=== PATIENT | male | born 1950 | race Caucasian/White ===

== ENCOUNTER 2024-05-08 18:16 | Inpatient (IN) | payer MEDICARE, MEDICAID, SELFPAY ==
[2024-05-08] VITALS (10 sets, daily range): BP systolic 144–220; BP diastolic 91–127; PULSE 94–112; RESP 24–33; TEMP 36.1–36.4; O2SAT 90–96
--- NOTE | 2024-05-08 18:20 | EKG_ITS ---
[facility] Test Date: 2024-05-08 Pat Name: PAT DAVIS Department: Room: - Gender: Male [employer]s Par[employer]: : 1950 Requested By: Colton Can Order Number: [id number] Reading MD: Colton Can Measurements Intervals Gray Rate: 113 P: 66 AR: 170 QRS: 42 QRSD: 93 T: 65 QT: 300 QTc: 412 Interpretive Statements SINUS TACHYCARDIA WITH OCCASIONAL VENTRICULAR PREMATURE COMPLEXES ABNORMAL RHYTHM ECG Compared to ECG 09/04/2023 14:00:36 Ventricular premature complex(es) now present Sinus rhythm no longer present /store/S0/[id number].pdf
--- NOTE | 2024-05-08 18:20 | XR_ITS ---
Examination: AP chest single view Technique: AP portable sitting chest single view Exam date and time: May 08, 2024 1725 hrs. Comparison September 04, 2023 Indications: Shortness of breath today. Findings: Moderate vascular congestion Suspicious for septal edema at the lung bases. No aspiration pneumonia Moderate osteopenia Impression: Mild heart failure No aspiration pneumonia
--- NOTE | 2024-05-08 18:30 | XR_ITS ---
Examination: AP lateral soft tissue neck 2 views Technique: AP lateral soft tissue neck 2 views Indications: Difficulty breathing today. Findings: Moderate distention of the hypopharynx Normal epiglottis No prevertebral soft tissue prominence. No opaque foreign body Impression: Normal epiglottis No opaque foreign body No prevertebral soft tissue prominence
[2024-05-08 18:31] LABS: Lactate (Lactic Acid) 0.9 mMol/L (0.4-2.0)
[2024-05-08 18:32] LABS: Basophils # (Auto) 0.1 Thou/mm3 (0.0-0.2); Basophils % (Auto) 1 % (0-2.5); Eosinophils # (Auto) 0.3 Thou/mm3 (0.0-0.5); Eosinophils % (Auto) 3 % (0-10); Hematocrit 45.8 % (41.0-53.0); Hemoglobin 14.7 g/dL (13.5-16.0); Immature Granulocytes % (Auto) 1 % (0-0); Immature Granulocytes Auto 0.05 Thou/mm3 (0.00-0.00); Lymphocytes # (Auto) 3.7 Thou/mm3 (1.0-4.8); Lymphocytes % (Auto) 34 % (10-50); Mean Corpuscular HGB Conc 32.1 g/dl (31.0-37.0); Mean Corpuscular Hemoglobin 30.2 pg (25.0-35.0); Mean Corpuscular Volume 94 fL (80-100); Monocytes # (Auto) 0.8 Thou/mm3 (0.0-0.8); Monocytes % (Auto) 7 % (0-12); Neutrophils # (Auto) 5.9 Thou/mm3 (1.8-7.7); Neutrophils % (Auto) 54 % (37-80); Nucleated Red Blood Cell % 0 /100 WBC (0); Platelet Count 267 Thou/mm3 (140-440); RDW Standard Deviation 45.3 fL (35.1-43.9); Red Blood Count 4.86 Miln/mm3 (4.50-5.90); White Blood Count 10.9 Thou/mm3 (3.8-10.6)
[2024-05-08 18:41] LABS: Base Excess -2 (-3-3); HCO3 31 mEq/L (20-26); O2 Saturation 95 % (91-98); PCO2 105 mmHg (32.0-48.0); PO2 101 mmHg (83-108)
--- NOTE | 2024-05-08 18:41 | XR_ITS ---
Examination: CTA carotids with intravenous contrast CTA brain, head with intravenous contrast. 2-D sagittal, coronal reconstructions. 3-D reconstructions. Exam date and time: May 08, 2024 1859 hrs. Indications: Stroke alert today CTDI: vol (mGy) 48.9 DLP: (mGycm) 500 Technique: Multiple CTA axial brain, head carotid images post intravenous contrast injection 75 cc, [id number]. 2-D sagittal, coronal reconstructions. 3-D reconstructions, 3-D post processing including vascular maximum intensity projection images. Low dose protocols were performed. One or more of the following dose reduction techniques were used; automated exposure control, adjustment of the mA and/or KV according to patient size, use of iterative reconstruction technique. Findings: Fluid distended esophagus 40-60% stenosis right carotid bifurcation origin right internal carotid artery 70-80% stenosis left carotid bifurcation origin left internal carotid artery Dominant right vertebral artery with no critical vertebral artery stenoses No cerebral large vessel arterial occlusions or thrombus Impression: 40-60% stenosis right carotid bifurcation origin right internal carotid artery 70-80% stenosis left carotid bifurcation origin left internal carotid artery No cerebral large vessel arterial occlusions or thrombus
--- NOTE | 2024-05-08 18:41 | XR_ITS ---
Examination: CT brain head without contrast. 2-D sagittal coronal reconstructions Date and time of exam:May 08, 2024 1847 hrs. Indications: Stroke alert, onset altered mental status today CTDI: vol (mGy):49.5 DLP: (mGycm):1032 Technique: Multiple CT axial sections of the brain have been obtained, 5 mm slice thickness. Contrast has not been administered. 2-D sagittal, coronal reconstructions have been obtained Low dose protocols were performed. One or more of the following dose reduction techniques were used; automated exposure control, adjustment of the mA and/or KV according to patient size, use of iterative reconstruction technique. Findings: No significant ventricular enlargement. Encephalomalacia again noted right cerebral artery distribution compared with May 30, 1999 and Intra-axial or extra-axial hemorrhage density is not seen. No mass effect or midline shift Basal cisterns are not remarkable. Fourth ventricle is midline. Cranial vault intact. Impression: Negative for acute hemorrhage, mass effect or midline shift
--- NOTE | 2024-05-08 18:42 | PC.NURSE ---
VINAY FROM [facility] WAS EATING RICE AT [employer] AND STAFF BELIEF HE ASPIRATED ON RICE, PT BECAME SOB, SPO2 DROPPED TO 79%, EMS PLACED HIM ON A NRB AND GOT HIS SPO2 TO COME UP TO 92%. PT WAS ABLE TO GIVE SHORT ANSWERS UPON ARRIVAL HOWEVER NOW NOT ANSWERING QUESTIONS ONLY LOOKING UP AND NOT RESPONDING TO QUESTIONS, PROVIDER CALLED STROKE ALERT. PT GETTING TREATMENT FROM RT THEN WILL GO TO CT PER PROVIDER. BS WAS 192
[2024-05-08 18:43] LABS: Inspired O2, VO2 Liters 12 L/min
--- NOTE | 2024-05-08 18:44 | PD.EDADULT ---
ED General RME/HPI General Chief complaint: Shortness of Breath/Dyspnea Stated complaint: SHORTNESS OF BREATH Time Seen by Provider: 05/08/24 18:30 Arrival date/time: 05/08/24 18:16 RME / HPI RME / HPI narrative: Patient is 73 years old male with past medical history of COPD, hypertension, hyperlipidemia, anxiety and depression presented to the ED by ambulance due to severe respiratory distress. Per EMS patient was eating at [employer] when he suddenly developed cough and respiratory distress, EMS was called, they found patient saturating 60% on room air, stridor was noticed. Patient was coughing a lot and was coughing up food particles. He was placed on nonrebreather oxygen and his condition improved, saturation was in 80s en route to hospital. Patient was talking to EMS however and on arrival he is nonverbal and his gaze is fixated up. His skin is mottled and he is using accessory respiratory muscles. Last well-known 5:50 PM today. POLST form was brought with patient stating his full code. Related Data Home Medications ?Medication ?Instructions ?Recorded ?Confirmed atorvastatin 40 mg tablet 20 mg PO HS 12/20/19 09/04/23 carvedilol 3.125 mg tablet 3.125 mg PO BID 12/20/19 09/04/23 cholecalciferol (vitamin D3) 125 125 mcg PO QDAY 07/08/20 09/04/23 mcg (5,000 unit) tablet (Vitamin D3) [id number] 1 tab PO QDAY 07/09/20 09/04/23 tablet (Multivitamin 50 Plus tablet) aripiprazole 2 mg tablet (Abilify) 2 mg PO DAILY 08/21/23 09/04/23 aspirin 81 mg chewable tablet 81 mg PO QDAY 08/21/23 09/04/23 cetirizine 10 mg tablet (Zyrtec) 20 mg PO QDAY 08/21/23 09/04/23 escitalopram oxalate 20 mg tablet 20 mg PO DAILY 08/21/23 09/04/23 (Lexapro) tadalafil 5 mg tablet 5 mg PO QDAY 08/21/23 09/04/23 Previous Rx's ?Medication ?Instructions ?Recorded lorazepam 0.5 mg tablet 0.5 mg PO Q12HR PRN Anxiety #30 08/24/23 tabs hydroxyzine HCl 25 mg tablet 25 mg PO BID PRN anxiety #30 tabs 08/25/23 lisinopril 20 mg tablet 20 mg PO QDAY #30 tabs 08/25/23 Allergies Allergy/AdvReac Type Severity Reaction Status Date / Time No Known Allergies Allergy Verified 05/08/24 18:27 Review of Systems Review of Systems ROS Unobtainable: unobtainable due to mental status ED Exam Narrative Physical exam: Gen: Well-developed and well-nourished male in respiratory distress. HEENT: NCAT, PERRLA, EOMI, MMM, anicteric conjunctivae. CVS: normal S1 and S2. Regular tachycardia. No M/R/G. Resp: Decreased breath sounds B/L with rhonchi. Using accessory muscles for breathing. No rales, crackles or wheezing. Abd: soft, non-tender, non-distended. BS+ in all 4 quadrants. MSK: Good ROM in BUE & BLE. No edema. Skin is mottled. Neuro: Limited exam due to mental status, patient is nonverbal does not follow commands. Course Course Course Narrative: Last time normal 1829 : Stroke Alert called 183: To CT 1844: stroke alert. Teleneuro consulted. Patient is taken to CT scan. On 10L oxymask sat 90%. BS 192. BP 220/127, HR 112, RR 33, sat 90% on 15L oxymask. 1850: pH 7.08, pCO2 105, pO2 101. 05/08/24 6:59 pm Colton Plasencia 19:[address] with the patient Patient back to normal answering questions and following all commands. Since he is improved there is no contraindications to tPA. Discussed with the telemetry neurologist and he feels there is some form of history of catatonia and depression and he feels his exam is completely normal at this time he does not feel the patient needs any other stroke workup. Can consider metabolic workup. 2000: decision to admit. Quality Measures none Orders Category Date Time Status Aspiration precautions ONCE Care 05/08/24 18:21 Active Bedside Blood Glucose NOW Care 05/08/24 18:41 Active Bedside COVID-19 Antigen Test NOW Care 05/08/24 19:23 Active Bedside Influenza A&B Antigen Test NOW Care 05/08/24 19:23 Completed COVID-19 Screening Questionnaire NOW Care 05/08/24 20:14 Active [employer] Driver NOW Care 05/08/24 18:41 Active Continuous Pulse Oximetry NOW Care 05/08/24 18:41 Completed Decision to Admit X1 Care 05/08/24 20:14 Active EKG (ED ONLY) *Do not use* NOW Care 05/08/24 18:21 Completed In and Out Catheter NEEDED Care 05/08/24 18:41 Active Insert IV NOW Care 05/08/24 18:21 Active MRI Screening NOW Care 05/08/24 18:57 Completed Miscellaneous Nursing Order NOW Care 05/08/24 20:43 Active NIH Stroke Scale now Care 05/08/24 18:41 Active NPO NOW Care 05/08/24 18:41 Active Neuro Check Q2HR Care 05/08/24 18:42 Active Nurse Swallow Screen x1 Care 05/08/24 18:41 Active Consult to Neurology / Tele-Neurology Routine Cons 05/08/24 18:[address] angio stroke protocol Stat Exams 05/08/24 18:[address] stroke protocol Stat Exams 05/08/24 18:41 Completed CXRP [XR chest 1V portable] Stat Exams 05/08/24 18:20 Completed EKG (ED Only) Stat Exams 05/08/24 18:20 Draft MR stroke protocol Stat Exams 05/08/24 Stop Req XR soft tissue neck Stat Exams 05/08/24 18:30 Completed ABG [Arterial Blood Gas] Stat Lab 05/08/24 18:37 Completed ABG [Arterial Blood Gas] Stat Lab 05/08/24 20:35 Completed B-Type Natriuretic Peptide Stat Lab 05/08/24 18:27 Completed BMP [Basic Metabolic Panel] Stat Lab 05/08/24 21:02 Ordered CBC Stat Lab 05/08/24 18:27 Completed CMP [Comprehensive Metabolic Panel] Stat Lab 05/08/24 18:27 Completed Drug Screen,Urine Stat Lab 05/08/24 18:41 Ordered Lactate (Lactic Acid) Stat Lab 05/08/24 18:27 Completed Lactate (Lactic Acid) Stat Lab 05/08/24 21:02 Ordered Magnesium Stat Lab 05/08/24 18:27 Completed Partial Thromboplastin Time Stat Lab 05/08/24 18:27 Completed Prothrombin Time with INR Stat Lab 05/08/24 18:27 Completed Troponin I Stat Lab 05/08/24 18:27 Completed Urinalysis Stat Lab 05/08/24 18:21 Ordered Urine Culture Stat Lab 05/08/24 18:41 Ordered Aspirin Supp Med 05/08/24 18:41 Discontinued 300 mg NH X1 ONE EPINEPHrine Rt Suzanne [Racemic Epi Rt Suzanne] Med 05/08/24 18:37 Discontinued 0.5 ml .ROUTE .STK-MED ONE EPINEPHrine Rt Suzanne [Racemic Epi Rt Suzanne] Med 05/08/24 18:40 Discontinued 0.5 ml INH X1 ONE Ondansetron Inj [Zofran Inj] Med 05/08/24 18:41 Active 4 mg IV Q4HR PRN Pantoprazole Inj [Protonix Inj] Med 05/08/24 19:52 Discontinued 40 mg IV X1 ONE Sodium Chloride 0.9% 1000 ml [Ns] 1,000 ml Med 05/08/24 18:45 Active IV 100 mls/hr Sodium Chloride Rt Suzanne 0.9% [NS Rt Suzanne 0.9%] Med 05/08/24 18:40 Active 3 ml INH PRN PRN Oxygen Delivery NOW RT 05/08/24 18:21 Active Vital Signs Vital signs: Vital Signs Pulse Rate 112 H 05/08/24 18:21 Respiratory Rate 33 H 05/08/24 18:21 Blood Pressure 220/127 H 05/08/24 18:21 Pulse Oximetry (%) 95 05/08/24 18:21 Oxygen Delivery Method Oxy Mask 05/08/24 18:21 Oxygen Flow Rate 15 05/08/24 18:21 Procedures -ED EKG Interpretation #1: Date of EK05/08/24 Time of EK:24 Rate: 113 Interpretation: Reviewed by me EKG Impression: PVCs and Sinus tachycardia MDM Patient data External records reviewed:: [facility] previous records, EMS form and [facility] records Clinical information provided by:: EMS Social determinants that could affect healthcare access:: none Patient has the following chronic illnesses:: COPD, hypertension, hyperlipidemia, anxiety and depression How is presenting disease/condition affected by chronic disease/condition?: exacerbated by Evaluation data The following diagnostics were reviewed and interpreted by me:: lab results, radiology exam(s) and EKG tracing(s) Lab and/or radiology exams considered but not ordered:: CTA Interpretation Summary: [facility] Medications Medications considered but not ordered:: statin Medication administrations:: Medication Administration History Sodium Chloride (Ns) 1,000 mls @ 100 mls/hr IV .Q10H JG Stop: 06/07/24 18:44 Last Admin: 05/08/24 19:31 Dose: 100 mls/hr Documented By: FLORENCE Ondansetron HCl (Ondansetron Inj 2 Mg/Ml Inj 2 Ml) 4 mg IV Q4HR PRN PRN Reason: NAUSEA OR VOMITING Stop: 06/07/24 18:40 Last Admin: 05/08/24 19:40 Dose: 4 mg Documented By: FLORENCE Sodium Chloride (Sodium Chloride Rt Suzanne 0.9% 3 Ml Nebu) 3 ml INH PRN PRN PRN Reason: SOLN Stop: 06/07/24 18:39 Discontinued Medications Aspirin (Aspirin 300 Mg Supp) 300 mg NH X1 ONE Stop: 05/08/24 18:42 Last Admin: 05/08/24 19:31 Dose: 300 mg Documented By: FLORENCE Epinephrine (Epinephrine Rt Suzanne 0.5 Ml Nebu) 0.5 ml INH X1 ONE Stop: 05/08/24 18:41 Last Admin: 05/08/24 19:13 Dose: 0.5 ml Documented By: ANAND Epinephrine (Epinephrine Rt Suzanne 0.5 Ml Nebu) Confirm Administered Dose 0.5 ml .ROUTE .STK-MED ONE Stop: 05/08/24 18:38 Last Admin: 05/08/24 19:42 Dose: Not Given Documented By: ANAND Non-Admin Reason: Override Medication Pantoprazole Sodium (Pantoprazole Inj 40 Mg Vial) 40 mg IV X1 ONE Stop: 05/08/24 19:53 Last Admin: 05/08/24 20:06 Dose: 40 mg Documented By: FLORENCE as above Consultations Consultation(s) initiated? (list below): Yes Consultation #1 (Physician, Specialty, Details): Teleneurology, stroke alert. Diagnosis Differential Diagnosis ED Complaint MDM: hypercapnia due to aspiration, stroke, TIA, ACS Most likely diagnosis given after review of the tests above:: AHRF 2/2 aspiration Admission Indicated Admission indicated?: indicated Explain why admission is indicated or not indicated:: Patient has experienced severe respiratory distress and acute hypoxic respiratory failure after aspirational event. On arrival his pH was 7.08 and he was obtunded. He was suctioned and put on oxygen high flow and his condition significantly improved and he is now awake and able to talk. Patient will need to be admitted for observation after aspirational event. Admission Request Was there a request for admission?: Yes Admission Attestation Admission request attestation: Discussed case with Dr. Yoder from Hospitalist service regarding admission. Discussed patients ED course, exam findings, labs, and radiology results. The Hospitalist agrees to accept the patient for admission. Disposition Plan Disposition Plan: Admit Medical Decision Making Differential Diagnosis Differential Diagnosis: hypercapnia due to aspiration, stroke, TIA, ACS Lab Data 05/08/24 18:27 05/08/24 18:27 Labs: Lab Results 05/08/24 05/08/24 05/08/24 Range/Units 18:27 18:37 20:35 WBC 10.9 H (3.8-10.6) Thou/mm3 RBC 4.86 (4.50-5.90) Miln/mm3 Hgb 14.7 (13.5-16.0) g/dL Hct 45.8 (41.0-53.0) % MCV 94 (80-100) fL MCH 30.2 (25.0-35.0) pg MCHC 32.1 (31.0-37.0) g/dl RDW Std Deviation 45.3 H (35.1-43.9) fL Plt Count 267 (140-440) Thou/mm3 Neut % (Auto) 54 (37-80) % Lymph % (Auto) 34 (10-50) % [place]wood % (Auto) 7 (0-12) % Eos % (Auto) 3 (0-10) % Baso % (Auto) 1 (0-2.5) % Neut # (Auto) 5.9 (1.8-7.7) Thou/mm3 Lymph # (Auto) 3.7 (1.0-4.8) Thou/mm3 [place]wood # (Auto) 0.8 (0.0-0.8) Thou/mm3 Eos # (Auto) 0.3 (0.0-0.5) Thou/mm3 Baso # (Auto) 0.1 (0.0-0.2) Thou/mm3 Immature Gran # (Auto) 0.05 H (0.00-0.00) Thou/mm3 Absolute Nucleated RBC 0.00 (0.00-0.00) Thou/mm3 Immature Gran % 1 H (0-0) % Nucleated RBC % 0 (0) /100 WBC PT 11.2 (9.0-12.2) Seconds INR 1.0 (0.9-1.3) APTT 25.6 (22.0-36.0) Seconds Puncture Site Site Not Noted Right Radial ABG pH 7.08 L* 7.21 L D (7.35-7.45) ABG pCO2 105 H* 68 H D (32.0-48.0) mmHg ABG pO2 101 58 L* D (83-108) mmHg ABG HCO3 31 H 27 H (20-26) mEq/L ABG O2 Saturation 95 85 L (91-98) % ABG Base Excess -2 -2 (-3-3) Oxygen Liter Flow 12 L/min FiO2 30 % Sodium 139 (136-145) mMol/L Potassium 4.8 (3.4-5.1) mMol/L Chloride 104 (98-107) mMol/L Carbon Dioxide 30.2 (20.0-31.0) mMol/L Anion Gap 5 L (7-16) BUN 12 (9-23) mg/dL Creatinine 0.6 (0.6-1.3) mg/dL Estim Creat Clear Calc Not Performed. eGFR > 60 (60 - ) See Note BUN/Creatinine Ratio 20 (12-20) Ratio Glucose 194 H (74-106) mg/dL Calculated Osmolality 282 (275-295) Lactic Acid 0.9 (0.4-2.0) mMol/L Calcium 9.5 (8.3-10.6) mg/dL Corrected Calcium 9.5 (8.5-10.1) mg/dL Magnesium 2.0 (1.6-2.6) mg/dL Total Bilirubin 0.4 (0.3-1.2) mg/dL AST 34 (0-34) U/L ALT 31 (10-49) U/L Alkaline Phosphatase 104 (46-116) U/L Troponin I < 0.020 (0.0-0.045) ng/mL B-Natriuretic Peptide 410 H (0-100) pg/mL Total Protein 7.6 (5.7-8.2) gm/dL Albumin 4.3 (3.4-4.8) gm/dL Globulin 3.3 (2.3-3.5) gm/dL Albumin/Globulin Ratio 1.3 (1.2-2.2) Discharge Plan Plan Patient Disposition: Admit Acute Care w/in Hospital Prescriptions/Referrals Prescriptions/Med Rec: No Action atorvastatin 40 mg tablet 20 mg PO HS carvedilol 3.125 mg tablet 3.125 mg PO BID Rx Instructions: must administer with a meal/food cholecalciferol (vitamin D3) [Vitamin D3] 125 mcg (5,000 unit) Tablet 125 mcg PO QDAY Multivitamin 50 Plus Tablet 1 tab PO QDAY aripiprazole [Abilify] 2 mg Tablet 2 mg PO DAILY escitalopram oxalate [Lexapro] 20 mg Tablet 20 mg PO DAILY tadalafil 5 mg Tablet 5 mg PO QDAY cetirizine [Zyrtec] 10 mg Tablet 20 mg PO QDAY aspirin 81 mg Tablet,Chewable 81 mg PO QDAY lorazepam 0.5 mg Tablet 0.5 mg PO Q12HR PRN (Reason: Anxiety) Qty: 30 0RF lisinopril 20 mg Tablet 20 mg PO QDAY Qty: 30 0RF hydroxyzine HCl 25 mg Tablet 25 mg PO BID PRN (Reason: anxiety) Qty: 30 0RF Referrals: Chip Tena MD [Primary Care Provider] - In 1 week Problem List Clinical Impression: Aspiration into airway, Acute on chronic respiratory failure with hypoxia and hypercapnia Patient/Caregiver Discharge Instructions Print Language: Vietnamese Stand Alone Forms: [employer] Info., Patient Portal Info Letter MD Attestation Attestation I, Dr. Conway, have reviewed the history, exam, and assessment of the patient. I have evaluated the patient independently and agree with the plan of care documented by resident Colton Can. All diagnostic studies were reviewed and discussed. I confirm the diagnosis as documented by the resident. I was present during the Medical Decision Making for this patient. The patient's plan of care was created between myself and the Resident and consistent with our discussion of the patient's case.
[2024-05-08 18:47] LABS: Allen Test Performed/OK; Puncture Site Site Not Noted
[2024-05-08 18:50] LABS: pH, Arterial 7.08 (7.35-7.45)
[2024-05-08 18:54] LABS: Alanine Aminotransferase 31 U/L (10-49); Albumin, Serum 4.3 gm/dL (3.4-4.8); Albumin/Globulin Ratio 1.3 (1.2-2.2); Alkaline Phosphatase 104 U/L (46-116); Anion Gap 5 (7-16); Aspartate Amino Transferase 34 U/L (0-34); BUN/Creatinine Ratio 20 Ratio (12-20); Bilirubin,Total 0.4 mg/dL (0.3-1.2); Blood Urea Nitrogen 12 mg/dL (9-23); Calcium 9.5 mg/dL (8.3-10.6); Calcium (Corrected) 9.5 mg/dL (8.5-10.1); Carbon Dioxide 30.2 mMol/L (20.0-31.0); Chloride 104 mMol/L (98-107); Creatinine (Component) 0.6 mg/dL (0.6-1.3); Globulin 3.3 gm/dL (2.3-3.5); Glucose 194 mg/dL (74-106); Osmolality,Calculated 282 (275-295); Potassium 4.8 mMol/L (3.4-5.1); Sodium 139 mMol/L (136-145); Total Protein 7.6 gm/dL (5.7-8.2); Troponin I < 0.020 ng/mL (0.0-0.045); eGFR > 60 See Note
[2024-05-08 19:10] LABS: Partial Thromboplastin Time 25.6 Seconds (22.0-36.0); Prothrombin Time 11.2 Seconds (9.0-12.2)
[2024-05-08] MEDS: EPINEPHrine RT SOL 0.5 ML NEBU INH (19:13)
[2024-05-08 19:20] LABS: B-Type Natriuretic Peptide 410 pg/mL (0-100)
--- NOTE | 2024-05-08 19:27 | PD.NEUROCONS ---
History of Present Illness Data of Consult Primary Care Provider: Chip Tena MD Consult Narrative History of present illness: 73yo man with past medical history significant for HTN, HLD, anxiety and depression, who presents from nursing when he was noted to have acute onset difficulty breathing while he was eating dinner today with last known well reportedly around 5:50PM today. Patient was initially nonverbal but later became more responsive. Does not recall what happened. Endorses difficulty breathing. Denies chest pain. Denies hx of seizure or catatonia. cc:: cc: Meds Home Medications and Allergies Home Medications ?Medication ?Instructions ?Recorded ?Confirmed ?Type atorvastatin 40 mg tablet 20 mg PO HS 12/20/19 09/04/23 History carvedilol 3.125 mg tablet 3.125 mg PO BID 12/20/19 09/04/23 History cholecalciferol (vitamin D3) 125 125 mcg PO QDAY 07/08/20 09/04/23 History mcg (5,000 unit) tablet (Vitamin D3) [id number] 1 tab PO QDAY 07/09/20 09/04/23 History tablet (Multivitamin 50 Plus tablet) aripiprazole 2 mg tablet (Abilify) 2 mg PO DAILY 08/21/23 09/04/23 History aspirin 81 mg chewable tablet 81 mg PO QDAY 08/21/23 09/04/23 History cetirizine 10 mg tablet (Zyrtec) 20 mg PO QDAY 08/21/23 09/04/23 History escitalopram oxalate 20 mg tablet 20 mg PO DAILY 08/21/23 09/04/23 History (Lexapro) tadalafil 5 mg tablet 5 mg PO QDAY 08/21/23 09/04/23 History Allergies Allergy/AdvReac Type Severity Reaction Status Date / Time No Known Allergies Allergy Verified 05/08/24 18:27 Exam - Neurology Vital Signs Pulse Resp BP Pulse Ox O2 Del Method O2 Flow Rate 94 30 H 220/127 H 90 L Oxy Mask 6 05/08/24 19:14 05/08/24 19:14 05/08/24 18:21 05/08/24 19:14 05/08/24 18:21 05/08/24 19:14 Narrative Exam Examination: BP(209/117), Pulse(112), Blood Glucose(192) 1A: Level of Consciousness - Alert; keenly responsive + 0 1B: Ask Month and Age - Both Questions Right + 0 1C: Blink Eyes & Squeeze Hands - Performs Both Tasks + 0 2: Test Horizontal Extraocular Movements - Normal + 0 3: Test Visual Damon - No Visual Loss + 0 4: Test Facial Palsy (Use Grimace if Obtunded) - Normal symmetry + 0 5A: Test Left Arm Motor Drift - No Drift for 10 Seconds + 0 5B: Test Right Arm Motor Drift - No Drift for 10 Seconds + 0 6A: Test Left Leg Motor Drift - No Drift for 5 Seconds + 0 6B: Test Right Leg Motor Drift - No Drift for 5 Seconds + 0 7: Test Limb Ataxia (FNF/Heel-Joyner) - No Ataxia + 0 8: Test Sensation - Normal; No sensory loss + 0 9: Test Language/Aphasia - Normal; No aphasia + 0 10: Test Dysarthria - Normal + 0 11: Test Extinction/Inattention - No abnormality + 0 NIHSS Score: 0 Pre-Morbid Modified Kelli Scale: Unable to assess Advanced Imaging: CTA Head and Neck Completed. LVO:No Patient in not a candidate for MARICURZ Metrics: Last Known Well: 05/08/2024 17:40:00 Dispatch Time: 05/08/2024 18:41:25 Arrival Time: 05/08/2024 18:42:03 Initial Response Time: 05/08/2024 18:42:21 Symptoms: eyes open, nonverbal, not interactive. Initial patient interaction: 05/08/2024 18:57:27 NIHSS Assessment Completed: 05/08/2024 19:01:05 Patient is not a candidate for Thrombolytic. Thrombolytic Medical Decision: 05/08/2024 19:01:05 Patient was not deemed candidate for Thrombolytic because of following reasons: other diagnosis suspected appears catatonic; basilar occlusion ruled out. I personally Reviewed the CT Head and it Showed no acute hemorrhage or large evolving infarct. 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 Primary Provider Notified of Diagnostic Impression and Management Plan on: 05/08/2024 19:37:36 Results Labs 05/08/24 18:27 05/08/24 18:27 Labs: Short CBC 05/08/24 Range/Units 18:27 WBC 10.9 H (3.8-10.6) Thou/mm3 Hgb 14.7 (13.5-16.0) g/dL Hct 45.8 (41.0-53.0) % Plt Count 267 (140-440) Thou/mm3 BMP 05/08/24 18:27 Sodium 139 Potassium 4.8 Chloride 104 Carbon Dioxide 30.2 BUN 12 Creatinine 0.6 Glucose 194 H Calcium 9.5 Cardiac Enzymes 05/08/24 Range/Units 18:27 Troponin I < 0.020 (0.0-0.045) ng/mL Liver Function 05/08/24 Range/Units 18:27 Total Bilirubin 0.4 (0.3-1.2) mg/dL AST 34 (0-34) U/L ALT 31 (10-49) U/L Alkaline Phosphatase 104 (46-116) U/L Albumin 4.3 (3.4-4.8) gm/dL ABG Interpretation ABG results: 05/08/24 18:37 ABG pH 7.08 L* ABG pCO2 105 H* ABG pO2 101 ABG HCO3 31 H ABG O2 Saturation 95 ABG Base Excess -2 Assessment & Plan Assessment and plan (1) Encephalopathy acute: Status: Acute Assessment and plan: [facility] Patient Name: Talha Ibrahim Date of : 1950 Identification Number: Date of Service: 05/08/2024 18:41:25 Diagnosis: ? G93.41 - Encephalopathy Metabolic Impression: ? 73M, pmh sig for severe anxiety, MDD, COPD, HTN, presenting with aoc hypercapnic rf in the setting of acute onset episode of diminished responsiveness and waxy flexibility in which patient had eyes open and not interactive and not moving (but with intact brain stem reflexes) which later resolved very abruptly, NIHSS 0, LKW 17:50 today. Left MCA and basilar are widely patent on CTA, and CTH w/o acute pathology. DDX includes cataonia vs metabolic enceph vs focal seizure (but no post-ictal phase so less concerning). No suspicion for TIA. No tNK given low suspicion for stroke and resolution of sxs. No LVO but otherwise with chronic bilateral carotid stenoses with L severe and R moderate, which are likely incidental and noncontributory to this acute episode. Our recommendations are outlined below. Recommendations: ? Consider Psychiatric evaluation ? Ativan 1-2mg prn ? No indication for EEG at this time ? Hold off antiseizure medication ? Continue home asa 81mg qd ? Management of acute on chronic hypercapneic failure per primary team Spoke with : dr. Can This consult was conducted in real time using interactive audio and video technology. Patient was informed of the technology being used for this visit and agreed to proceed. Patient located in hospital and provider located at home/office setting. Patient is being evaluated for possible acute neurologic impairment and high probability of imminent or life-threatening deterioration. I spent total of 45 minutes providing care to this patient, including time for face to face visit via telemedicine, review of medical records, imaging studies and discussion of findings with providers, the patient and/or family. Dr Beni Su[facility]rez [facility] For Inpatient follow-up with [facility] physician please call [facility] at . As we are not an outpatient service for any post hospital discharge needs please contact the hospital for assistance. If you have any questions for the [facility] physicians or need to reconsult for clinical or diagnostic changes please contact us via [facility] at .
--- NOTE | 2024-05-08 19:29 | PC.RT ---
per nurse RT called pt on a non rebreather refer to ED notes, place on oxymask 12L, post abg pt place onhigh flow due to having an episode of vomiting while repositioned, DR. Bueno made aware, RT went to CT with pt, without complications, RT dc once pt on high flow 30L, 30% fio2 tolerating well.
[2024-05-08] MEDS: ASPIRIN 300 MG SUPP PR (19:31)
[2024-05-08] MEDS: SODIUM CHLORIDE 0.9% 1000 ML 1,000 ML 100 ML IV (19:31)
[2024-05-08] MEDS: ONDANSETRON INJ 2 MG/ML INJ 2 ML 4 MG IV (19:40)
[2024-05-08] MEDS: PANTOPRAZOLE INJ 40 MG VIAL IV (20:06)
[2024-05-08 20:39] LABS: Base Excess -2 (-3-3); HCO3 27 mEq/L (20-26); Inspired Oxygen, FIO2 30 %; O2 Saturation 85 % (91-98); PCO2 68 mmHg (32.0-48.0); pH, Arterial 7.21 (7.35-7.45)
[2024-05-08 20:40] LABS: Allen Test Performed/OK; PO2 58 mmHg (83-108); Puncture Site Right Radial
--- NOTE | 2024-05-08 21:09 | PC.RT ---
Dr. Hayes made aware of abg results, per keep spo2 >90%, spo2 92% while DRLamar in room no changes made to high flow 30L 30% fio2 patient tolerating well.
[2024-05-08 21:56] LABS: Lactate (Lactic Acid) 1.5 mMol/L (0.4-2.0)
[2024-05-08] MEDS: ALBUTEROL/IPRATROPIUM (Duoneb) RT SOL 3 ML NEBU INH (22:11)
[2024-05-08 22:21] LABS: Anion Gap 7 (7-16); BUN/Creatinine Ratio 28 Ratio (12-20); Blood Urea Nitrogen 14 mg/dL (9-23); Calcium 9.5 mg/dL (8.3-10.6); Carbon Dioxide 28.6 mMol/L (20.0-31.0); Chloride 107 mMol/L (98-107); Creatinine (Component) 0.5 mg/dL (0.6-1.3); Glucose 136 mg/dL (74-106); Osmolality,Calculated 287 (275-295); Potassium 4.4 mMol/L (3.4-5.1); Sodium 143 mMol/L (136-145); eGFR > 60 See Note
[2024-05-08] MEDS: HEPARIN SOD INJ 5000 UNIT/ML VIAL SC (23:01)
[2024-05-08] MEDS: DiphenhydrAMINE INJ 50 MG/ML VIAL 25 MG IV (23:01)
[2024-05-08 23:24] LABS: Collection Type, Urine Clean Catch; Squamous Epithelial Cell,Urine 0 /hpf (0-5)
[2024-05-08 23:27] LABS: Bilirubin,Urine Negative (Negative); Blood,Urine Negative (Negative); Clarity,Urine Clear (Clear/Hazy); Color,Urine Lt-Yellow (Lt Yel-Yel); Glucose, Urine Negative (Negative); Ketones,Urine Negative (Negative); Leukocyte Esterase,Urine Negative (Negative); Nitrite,Urine Negative (Negative); Protein,Urine Trace (Neg - Trace); RBC,Urine 2 /hpf (0-3); Specific Gravity,Urine 1.021 (1.001-1.035); Urobilinogen,Urine Negative mg/dL (0.0-1.0); WBC,Urine < 1 /hpf (0-5)
[2024-05-08 23:34] LABS: Amphetamine/Methamp Scrn,U Negative (Negative); Barbiturate Screen,Urine Negative (Negative); Benzodiazepines Screen,Urine Negative (Negative); Benzoylecgonine Screen, Ur Negative (Negative); Fentanyl Screen,Urine Negative (Negative); Opiate Screen,Urine Negative (Negative); THC Screen,Urine Negative (Negative)
--- NOTE | 2024-05-08 23:48 | ESHP_ITS ---
<Statement entered by Luis Guerra MD - 05/10/24 05:06> 73-year-old male with multiple comorbidities including COPD on 1 L supplemental oxygen who presented to the ER with cough and shortness of breath found to have acute hypoxic hypercapnic respiratory failure secondary to COPD exacerbation with component of aspiration pneumonia. As of this, plan to start patient on IV antibiotic therapy, IV steroids and breathing treatments.I reviewed above note and agree with findings and plans. I have also personally examined the patient with medicine team and went over assessment and plan with medical team including product development intern and resident physician. Documentation for date of: 05/08/24 HPI History of Present Illness Chief complaint: Hyopxia and confusion History of present illness: HPI: A 73-year-old male patient with past medical history of COPD on 1 L of oxygen, anxiety, depression, hypertension, brought to the ED from [facility] after he was witnessed to be choking on food this evening. As per the EMS patient was eating his dinner when he suddenly started to cough excessively and was unable to catch his breath. Patient became drowsy?made the caregiver called ambulance.ED course:Upon arrival EMS found the patient was saturating 60% on room air, and was noticed to have difficulty breathing and was in distress. He was also noticed to have a particles reduced whenever he coughs. After that the patient was drowsy and was confused and unresponsive. At the ED deep suctioning was done for the patient and oxygenation with high flow improved his mental status and gradually became responsive and oriented x 3. On questioning patient denied any history of chest pain, fever, chills, wheezing, and denied any abdominal pain, nausea or vomiting. Patient reported that he has been doing well since he was discharged from the hospital 6 months ago to the long-term facility for rehab. He has been weaning off the oxygen at this time he is only on 1 L of oxygen. He mentions that his COPD was controlled with inhalers and medications. Home medications: Aspirin, atorvastatin, carvedilol, cetirizine, cholecalciferol,, ipratropium/albuterol, lisinopril, lorazepam, multivitamin Upon arrival to the ED patient was noted to be Confused, and unresponsive. Have blood pressure of 220/127, pulse rate of 112, respiratory rate of 33, temperature of 96, O2 saturation 96 on high flow nasal cannula. His CBC showed hemoglobin of 10.9, hemoglobin of 14.7, coagulation panel within normal limits. And his ABG was pH of 7.08, CO2 of 105, O2 saturation 101, HCO3 of 31. BMP showed normal serum creatinine, sodium, and potassium and normal BUN of 12, glucose was 194, and BNP was 410. After patient was suctioned and was put on high flow nasal cannula his ABG showed significant improvement with pH of 7.21, CO2 dropped from 105-68, pO2 of 58. Chest x-ray showed mild heart failure however there was no consolidation or infiltrate. Because the patient came with confusion stroke alert was initiated in which CT scan of the head and CT angio of head and neck were ordered in initially were positive for 40 to 60% stenosis of the carotid bifurcation at the right internal carotid artery and 70 to 80% stenosis of the left carotid bifurcation of the left internal carotid artery. Brain CT was negative for any hemorrhage or mass effect teleneurologist was consulted he recommended just to continue his aspirin 81 mg daily as he does not have any suspicion of stroke or TIA. PMH: As above Social hx: Alcohol: Drinks beer socially Tobacco: Stopped smoking 6 years ago, 45 years smoker 2 packs/day Illicit drugs: Denied Allergies: No known allergy Review of Systems Review of Systems Systems Reviewed: All systems reviewed, normal except as documented Exam Vital Signs Temp Pulse Resp BP Pulse Ox O2 Del Method O2 Flow Rate 97.4 F 105 H 24 H 144/92 H 93 L High Flow Nasal Cannula 05/08/24 22:13 05/08/24 22:13 05/08/24 22:13 05/08/24 22:13 05/08/24 22:13 05/08/24 22:13 05/08/24 22:13 FiO2 30 05/08/24 22:13 Narrative Exam GEN: AOx3, able to speak full sentences, in mild distress, on high flow nasal cannula 30 L FiO2 of 30% saturating 93% HEENT: NC/AC, oral mucosa moist, neck supple CVS: RRR, muffled S1-S2 present, no murmurs appreciated RESP: Decreased air entry bilaterally, no wheezing or crepitations heard GI: soft,non distended, non tender, NBS MSK: able to move all 4 limbs, no lower extremity edema SKIN: warm and dry CARPENTER MATE: CN II-XII and Sensation grossly intact. Results: Labs 05/08/24 18:27 05/08/24 21:28 Labs: Short CBC 05/08/24 Range/Units 18:27 WBC 10.9 H (3.8-10.6) Thou/mm3 Hgb 14.7 (13.5-16.0) g/dL Hct 45.8 (41.0-53.0) % Plt Count 267 (140-440) Thou/mm3 BMP 05/08/24 05/08/24 18:27 21:28 Sodium 139 143 Potassium 4.8 4.4 Chloride 104 107 Carbon Dioxide 30.2 28.6 BUN 12 14 Creatinine 0.6 0.5 L Glucose 194 H 136 H D Calcium 9.5 9.5 Cardiac Enzymes 05/08/24 Range/Units 18:27 Troponin I < 0.020 (0.0-0.045) ng/mL Liver Function 05/08/24 Range/Units 18:27 Total Bilirubin 0.4 (0.3-1.2) mg/dL AST 34 (0-34) U/L ALT 31 (10-49) U/L Alkaline Phosphatase 104 (46-116) U/L Albumin 4.3 (3.4-4.8) gm/dL ABG Interpretation ABG results: 05/08/24 05/08/24 18:37 20:35 ABG pH 7.08 L* 7.21 L D ABG pCO2 105 H* 68 H D ABG pO2 101 58 L* D ABG HCO3 31 H 27 H ABG O2 Saturation 95 85 L ABG Base Excess -2 -2 Quality Measures Quality Measures none Advance care planning discussed with:: patient and child (Stepan) Medications Home Medications and Allergies Home Medications ?Medication ?Instructions ?Recorded ?Confirmed ?Type atorvastatin 40 mg tablet 20 mg PO HS 12/20/19 5 History carvedilol 3.125 mg tablet 3.125 mg PO BID 12/20/19 History cholecalciferol (vitamin D3) 125 125 mcg PO QDAY 07/0805/08/24 History mcg (5,000 unit) tablet (Vitamin D3) [id number] 1 tab PO QDAY 07/09/20 History tablet (Multivitamin 50 Plus tablet) aripiprazole 2 mg tablet (Abilify) 2 mg PO DAILY 08/2005/08/24 History aspirin 81 mg chewable tablet 81 mg PO QDAY 08/21/23 0 05/08/24 History cetirizine 10 mg tablet (Zyrtec) 20 mg PO QDAY 4 05/08/24 History escitalopram oxalate 20 mg tablet 20 mg PO DAILY 08/2005/08/24 History (Lexapro) tadalafil 5 mg tablet 5 mg PO QDAY 08/21/23 History fluticasone furoate 100 1 inh inhalation QDAY 05/08/24 History mcg-vilanterol 25 mcg/dose inhalation powder (Breo Ellipta) ipratropium 0.5 mg-albuterol 3 mg 3 ml inhalation Q6H 05/08/24 05/08/24 History (2.5 mg base)/3 mL nebulization soln Allergies Allergy/AdvReac Type Severity Reaction Status Date / Time No Known Allergies Allergy Verified 05/08/24 18:27 Visit Medications Acetaminophen (Acetaminophen 325 Mg Tablet) 650 mg PO Q6H PRN PRN Reason: Fever >101.5 OR MILD PAIN 1-3 Stop: 06/07/24 21:20 Albuterol/Ipratropium (Albuterol/Ipratropium (Duoneb) Rt Suzanne 3 Ml Nebu) 3 ml INH Q4HRRT [facility] Stop: 06/07/24 22:59 Last Admin: 05/08/24 22:11 Dose: 3 ml Heparin Sodium (Porcine) (Heparin Sod Inj 5000 Unit/Ml Vial) 5,000 unit SC Q8HR JG Stop: 05/22/24 21:59 Last Admin: 05/08/24 23:01 Dose: 5,000 unit Sodium Chloride (Ns) 1,000 mls @ 100 mls/hr IV .Q10H JG Stop: 06/07/24 18:44 Last Admin: 05/08/24 19:31 Dose: 100 mls/hr Azithromycin 250 mg/ Sodium (Chloride) 250 mls @ 250 mls/hr IV QDAY [facility] Stop: 05/15/24 21:40 Methylprednisolone Sodium Succinate (Methylprednisolone Sod Succ 40 Mg Vial) 40 mg IVP QDAY JG Stop: 05/16/24 08:59 Ondansetron HCl (Ondansetron Inj 2 Mg/Ml Inj 2 Ml) 4 mg IV Q4HR PRN PRN Reason: NAUSEA OR VOMITING Stop: 06/07/24 18:40 Last Admin: 05/08/24 19:40 Dose: 4 mg Ondansetron HCl (Ondansetron Inj 2 Mg/Ml Inj 2 Ml) 4 mg IV Q6H PRN; Protocol PRN Reason: NAUSEA OR VOMITING Stop: 06/07/24 21:20 Oxycodone/Acetaminophen (Oxycodone/Apap 5/325 Tablet) 1 tab PO Q6H PRN PRN Reason: PAIN SCALE 4-6 (Moderate Stop: 05/13/24 21:20 Pantoprazole Sodium (Pantoprazole Inj 40 Mg Vial) 40 mg IVP QDAY JG Stop: 06/08/24 08:59 Sennosides (Senna Tablet) 1 tab PO BID PRN; Protocol PRN Reason: CONSTIPATION Stop: 06/07/24 21:20 Sodium Chloride (Sodium Chloride Rt Suzanne 0.9% 3 Ml Nebu) 3 ml INH PRN PRN PRN Reason: SOLN Stop: 06/07/24 18:39 Discontinued Medications Aspirin (Aspirin 300 Mg Supp) 300 mg [place] X1 ONE Stop: 05/08/24 18:42 Last Admin: 05/08/24 19:31 Dose: 300 mg Diphenhydramine HCl (Diphenhydramine Inj 50 Mg/Ml Vial) 25 mg IV X1 ONE Stop: 05/08/24 22:50 Last Admin: 05/08/24 23:01 Dose: 25 mg Epinephrine (Epinephrine Rt Suzanne 0.5 Ml Nebu) 0.5 ml INH X1 ONE Stop: 05/08/24 18:41 Last Admin: 05/08/24 19:13 Dose: 0.5 ml Ampicillin Sodium/Sulbactam (Sodium 3 gm/ Sodium Chloride) 100 mls @ 200 mls/hr IV Q6HR JG Stop: 05/16/24 00:00 Pantoprazole Sodium (Pantoprazole Inj 40 Mg Vial) 40 mg IV X1 ONE Stop: 05/08/24 19:53 Last Admin: 05/08/24 20:06 Dose: 40 mg Assessment & Plan Plan Summary:A 73-year-old male patient with past medical history of COPD on 1 L of oxygen, anxiety, depression, hypertension, brought to the ED from SNF after he was witnessed to be choking on food this evening. As per the EMS patient was eating his dinner when he suddenly started to cough excessively and was unable to catch his breath. Patient was admitted for management of acute on chronic hypercapnic hypoxic respiratory failure and acute encephalopathy Assessment and plan #Acute on chronic hypercapnic hypoxic respiratory failure most likely secondary to COPD exacerbation versus aspiration #Acute aspiration #COPD exacerbation Patient was noticed to be choking at the long-term facility, denied any similar episodes in the past. his ABG was pH of 7.08, CO2 of 105, O2 saturation 101, HCO3 of 31. After patient was suctioned and was put on high flow nasal cannula his ABG showed significant improvement with pH of 7.21, CO2 dropped from 105-68, pO2 of 58. Chest x-ray showed mild heart failure however there was no consolidation or infiltrate BiPAP can worsen his aspiration, for that reason he was put on high flow nasal cannula Plan ? Admit patient to telemetry ? Start the patient on DuoNebs every 4 hours scheduled ? Start the patient on Solu-Medrol 40 mg IV ? Send for blood cultures ? Start the patient on azithromycin to 50 mg p.o. daily ? Formal speech therapy evaluation ? Chest physical therapy twice daily ? Aspiration precautions ? Keep patient n.p.o. until cleared by speech therapist ? Start the patient on pantoprazole #Acute syncopal body most likely secondary to hypercapnia and acidosis versus hypoxia, less likely to be stroke #Stroke ruled out #History of depression/anxiety On presentation his ABG was pH of 7.08, CO2 of 105, O2 saturation 101, HCO3 of 31. We believe that his acidosis and hypercapnia was the main reason for the confusion Because the patient came with confusion stroke alert was initiated in which CT scan of the head and CT angio of head and neck were ordered in initially were positive for 40 to 60% stenosis of the carotid bifurcation at the right internal carotid artery and 70 to 80% stenosis of the left carotid bifurcation of the left internal carotid artery. Brain CT was negative for any hemorrhage or mass effect teleneurologist was consulted he recommended just to continue his aspirin 81 mg daily as he does not have any suspicion of stroke or TIA. Patient was weaned off his of his aripiprazole, sertraline and most of his neurotropic drugs except Ativan 0.5 mg twice daily as needed for Plan ? Diphenhydramine x 1 now for anxiety ? Seizures precautions ? Neurochecks every 4 hours ? Will hold on resuming his Ativan because the patient still on high flow nasal cannula #Hypertension Plan ? Remote reconciliation, resume medications when appropriate #Hyperlipidemia Plan ? Resume home medications when appropriate Hospital Maintenance: FEN: N.p.o. until cleared by speech therapist DVT ppx: Subcutaneous heparin GI ppx: Protonix IV lines: PIV Tyson: Tyson Code status: Full code Dispo: Telemetry - Patient's plan and care discussed with my attending, Dr. Charlie Yoder MD Internal Medicine PGY-2
[2024-05-09] VITALS (15 sets, daily range): BP systolic 112–125; BP diastolic 59–77; PULSE 76–101; RESP 16–26; TEMP 36.2–37.4; O2SAT 30–100
[2024-05-09 00:25] LABS: Base Excess 4 (-3-3); HCO3 31 mEq/L (20-26); Inspired Oxygen, FIO2 30 %; O2 Saturation 95 % (91-98); PCO2 53 mmHg (32.0-48.0); PO2 74 mmHg (83-108); pH, Arterial 7.37 (7.35-7.45)
[2024-05-09 00:27] LABS: Allen Test Performed/OK; Puncture Site Right Radial
[2024-05-09] MEDS: AZITHROMYCIN INJ 250 MG in SODIUM CHLORIDE 0.9% 250 ML 250 ML IV ×2 (01:39→20:33)
[2024-05-09] MEDS: ALBUTEROL/IPRATROPIUM (Duoneb) RT SOL 3 ML NEBU INH ×5 (02:49→18:10)
[2024-05-09] MEDS: HEPARIN SOD INJ 5000 UNIT/ML VIAL SC ×3 (05:30→21:04)
[2024-05-09 05:37] LABS: Basophils # (Auto) 0.1 Thou/mm3 (0.0-0.2); Basophils % (Auto) 0 % (0-2.5); Eosinophils % (Auto) 0 % (0-10); Immature Granulocytes % (Auto) 0 % (0-0); Immature Granulocytes Auto 0.04 Thou/mm3 (0.00-0.00); Lymphocytes % (Auto) 8 % (10-50); Mean Corpuscular HGB Conc 31.7 g/dl (31.0-37.0); Mean Corpuscular Volume 95 fL (80-100); Monocytes # (Auto) 0.9 Thou/mm3 (0.0-0.8); Monocytes % (Auto) 7 % (0-12); Neutrophils # (Auto) 10.3 Thou/mm3 (1.8-7.7); Neutrophils % (Auto) 84 % (37-80); Nucleated Red Blood Cell % 0 /100 WBC (0); Platelet Count 197 Thou/mm3 (140-440); RDW Standard Deviation 46.1 fL (35.1-43.9); Red Blood Count 4.34 Miln/mm3 (4.50-5.90); White Blood Count 12.3 Thou/mm3 (3.8-10.6)
[2024-05-09] MEDS: DiphenhydrAMINE INJ 50 MG/ML VIAL 12.5 MG IV ×2 (06:27→21:04)
[2024-05-09 06:45] LABS: Alanine Aminotransferase 24 U/L (10-49); Albumin, Serum 3.7 gm/dL (3.4-4.8); Albumin/Globulin Ratio 1.4 (1.2-2.2); Alkaline Phosphatase 84 U/L (46-116); Anion Gap 7 (7-16); Aspartate Amino Transferase 27 U/L (0-34); BUN/Creatinine Ratio 17 Ratio (12-20); Bilirubin,Total 0.6 mg/dL (0.3-1.2); Blood Urea Nitrogen 10 mg/dL (9-23); Calcium 8.6 mg/dL (8.3-10.6); Calcium (Corrected) 8.8 mg/dL (8.5-10.1); Carbon Dioxide 29.2 mMol/L (20.0-31.0); Chloride 105 mMol/L (98-107); Creatinine (Component) 0.6 mg/dL (0.6-1.3); Globulin 2.7 gm/dL (2.3-3.5); Glucose 110 mg/dL (74-106); Magnesium 1.7 mg/dL (1.6-2.6); Osmolality,Calculated 281 (275-295); Phosphorous 3.2 mg/dL (2.4-5.1); Potassium 4.6 mMol/L (3.4-5.1); Sodium 141 mMol/L (136-145); Thyroid Stimulating Hormone 1.07 uIU/mL (0.55-4.78); Total Protein 6.4 gm/dL (5.7-8.2); eGFR > 60 See Note
[2024-05-09] MEDS: cefTRIAXone 1,000 MG in SODIUM CHLORIDE 0.9% (Popper) 50 ML 100 MG IV (09:06)
[2024-05-09] MEDS: PANTOPRAZOLE INJ 40 MG VIAL IVP (09:06)
[2024-05-09] MEDS: SODIUM CHLORIDE 0.9% 1000 ML 1,000 ML 100 ML IV (09:06)
--- NOTE | 2024-05-09 09:20 | PCS.ST ---
Swallow eval completed. Dysphagia 2 diet started (cardiac, per RN). Aspiration precautions explained. See swallow eval report for details.
--- NOTE | 2024-05-09 13:19 | ESPR_ITS ---
Documentation for date of: 05/09/24 Subjective Subjective Interval history: Mr. Ibrahim is a 73-year-old male patient with past medical history of COPD on 1 L of oxygen, anxiety, depression, hypertension, brought to the ED from [facility] after he was witnessed to be choking on food this evening. As per the EMS patient was eating his dinner when he suddenly started to cough excessively and was unable to catch his breath. Patient became drowsy?made the caregiver called ambulance.ED course:Upon arrival EMS found the patient was saturating 60% on room air, and was noticed to have difficulty breathing and was in distress. He was also noticed to have a particles reduced whenever he coughs. After that the patient was drowsy and was confused and unresponsive. At the ED deep suctioning was done for the patient and oxygenation with high flow improved his mental status and gradually became responsive and oriented x 3. On questioning patient denied any history of chest pain, fever, chills, wheezing, and denied any abdominal pain, nausea or vomiting. Patient reported that he has been doing well since he was discharged from the hospital 6 months ago to the senior care facility for rehab. He has been weaning off the oxygen at this time he is only on 1 L of oxygen. He mentions that his COPD was controlled with inhalers and medications. Home medications: Aspirin, atorvastatin, carvedilol, cetirizine, cholecalciferol,, ipratropium/albuterol, lisinopril, lorazepam, multivitamin Upon arrival to the ED patient was noted to be Confused, and unresponsive. Have blood pressure of 220/127, pulse rate of 112, respiratory rate of 33, temperature of 96, O2 saturation 96 on high flow nasal cannula. His CBC showed hemoglobin of 10.9, hemoglobin of 14.7, coagulation panel within normal limits. And his ABG was pH of 7.08, CO2 of 105, O2 saturation 101, HCO3 of 31. BMP showed normal serum creatinine, sodium, and potassium and normal BUN of 12, glucose was 194, and BNP was 410. After patient was suctioned and was put on high flow nasal cannula his ABG showed significant improvement with pH of 7.21, CO2 dropped from 105-68, pO2 of 58. Chest x-ray showed mild heart failure however there was no consolidation or infiltrate. Because the patient came with confusion stroke alert was initiated in which CT scan of the head and CT angio of head and neck were ordered in initially were positive for 40 to 60% stenosis of the carotid bifurcation at the right internal carotid artery and 70 to 80% stenosis of the left carotid bifurcation of the left internal carotid artery. Brain CT was negative for any hemorrhage or mass effect teleneurologist was consulted he recommended just to continue his aspirin 81 mg daily as he does not have any suspicion of stroke or TIA. 05/09/2024 resumed care from hospitalist team. Primary patient of Dr. Tena Patient was seen and examined at bedside. Stated that he is feeling better since the day of admission. Denies any other complaints Vitals are stable. Patient is on high flow oxygen 22 L/min saturating at 97% On physical examination, bilateral decreased breath sounds are noted ABG on 05/09/2024 showed pH 7.37, pCO2 53, pO2 74, bicarb 31 CMP is within normal limits. Exam Vital Signs Temp Pulse Resp BP Pulse Ox O2 Del Method O2 Flow Rate 97.4 F 85 22 H 116/59 L 95 High Flow Nasal Cannula 30 05/09/24 11:58 05/09/24 11:58 05/09/24 11:58 05/09/24 11:58 05/09/24 11:58 05/09/24 07:56 05/09/24 11:27 FiO2 30 05/09/24 11:27 Narrative Exam General: Awake. HEENT: Normocephalic, atraumatic, mucous membranes moist. Heart: Regular rate and rhythm, no murmurs. Lungs: Overall bilateral decreased breath sounds are noted Abdomen: Soft, nondistended, nontender, positive bowel sounds. ?No guarding or rebound tenderness. Neurologic: Alert and oriented x3, no gross neurological deficit, and patient able to move all 4 extremities. Extremities: No edema. Skin: No rash or ecchymoses. Objective Labs 05/09/24 04:46 05/09/24 04:46 Labs: Laboratory Results - last 24 hr 05/08/24 05/08/24 05/08/24 18:27 18:37 20:35 WBC 10.9 H RBC 4.86 Hgb 14.7 Hct 45.8 MCV 94 MCH 30.2 MCHC 32.1 RDW Std Deviation 45.3 H Plt Count 267 Neut % (Auto) 54 Lymph % (Auto) 34 [place] % (Auto) 7 Eos % (Auto) 3 Baso % (Auto) 1 Neut # (Auto) 5.9 Lymph # (Auto) 3.7 [place] # (Auto) 0.8 Eos # (Auto) 0.3 Baso # (Auto) 0.1 Immature Gran # (Auto) 0.05 H Absolute Nucleated RBC 0.00 Immature Gran % 1 H Nucleated RBC % 0 PT 11.2 INR 1.0 APTT 25.6 Puncture Site Site Not Noted Right Radial ABG pH 7.08 L* 7.21 L D ABG pCO2 105 H* 68 H D ABG pO2 101 58 L* D ABG HCO3 31 H 27 H ABG O2 Saturation 95 85 L ABG Base Excess -2 -2 Oxygen Liter Flow 12 FiO2 30 Sodium 139 Potassium 4.8 Chloride 104 Carbon Dioxide 30.2 Anion Gap 5 L BUN 12 Creatinine 0.6 Estim Creat Clear Calc Not Performed. eGFR > 60 BUN/Creatinine Ratio 20 Glucose 194 H Calculated Osmolality 282 Lactic Acid 0.9 Calcium 9.5 Corrected Calcium 9.5 Phosphorus Magnesium 2.0 Total Bilirubin 0.4 AST 34 ALT 31 Alkaline Phosphatase 104 Troponin I < 0.020 B-Natriuretic Peptide 410 H Total Protein 7.6 Albumin 4.3 Globulin 3.3 Albumin/Globulin Ratio 1.3 TSH Ur Collection Type Urine Color Urine Clarity Urine pH Ur Specific [place] Urine Protein Urine Glucose (UA) Urine Ketones Urine Blood Urine Nitrite Urine Bilirubin Urine Urobilinogen (Auto) Ur Leukocyte Esterase Urine RBC Urine WBC Ur Squamous Epith Cells Urine Bacteria Urine Opiates Screen Urine Fentanyl Screen Ur Barbiturates Screen U Amphetamin/Meth Scrn U Benzodiazepines Scrn U Cocaine Metab Screen U Marijuana (THC) Screen 05/08/24 05/08/24 05/09/24 21:28 23:15 00:18 WBC RBC Hgb Hct MCV MCH MCHC RDW Std Deviation Plt Count Neut % (Auto) Lymph % (Auto) [place] % (Auto) Eos % (Auto) Baso % (Auto) Neut # (Auto) Lymph # (Auto) [place] # (Auto) Eos # (Auto) Baso # (Auto) Immature Gran # (Auto) Absolute Nucleated RBC Immature Gran % Nucleated RBC % PT INR APTT Puncture Site Right Radial ABG pH 7.37 D ABG pCO2 53 H D ABG pO2 74 L ABG HCO3 31 H ABG O2 Saturation 95 ABG Base Excess 4 H Oxygen Liter Flow FiO2 30 Sodium 143 Potassium 4.4 Chloride 107 Carbon Dioxide 28.6 Anion Gap 7 BUN 14 Creatinine 0.5 L Estim Creat Clear Calc Not Performed. eGFR > 60 BUN/Creatinine Ratio 28 H Glucose 136 H D Calculated Osmolality 287 Lactic Acid 1.5 Calcium 9.5 Corrected Calcium Phosphorus Magnesium Total Bilirubin AST ALT Alkaline Phosphatase Troponin I B-Natriuretic Peptide Total Protein Albumin Globulin Albumin/Globulin Ratio TSH Ur Collection Type Clean Catch Urine Color Lt-Yellow Urine Clarity Clear Urine pH 6.0 Ur Specific [place] 1.021 Urine Protein Trace Urine Glucose (UA) Negative Urine Ketones Negative Urine Blood Negative Urine Nitrite Negative Urine Bilirubin Negative Urine Urobilinogen (Auto) Negative Ur Leukocyte Esterase Negative Urine RBC 2 Urine WBC < 1 Ur Squamous Epith Cells 0 Urine Bacteria None Urine Opiates Screen Negative Urine Fentanyl Screen Negative Ur Barbiturates Screen Negative U Amphetamin/Meth Scrn Negative U Benzodiazepines Scrn Negative U Cocaine Metab Screen Negative U Marijuana (THC) Screen Negative 05/09/24 04:46 WBC 12.3 H RBC 4.34 L Hgb 13.0 L Hct 41.0 MCV 95 MCH 30.0 MCHC 31.7 RDW Std Deviation 46.1 H Plt Count 197 D Neut % (Auto) 84 H Lymph % (Auto) 8 L [place] % (Auto) 7 Eos % (Auto) 0 Baso % (Auto) 0 Neut # (Auto) 10.3 H Lymph # (Auto) 1.0 [place] # (Auto) 0.9 H Eos # (Auto) 0.0 Baso # (Auto) 0.1 Immature Gran # (Auto) 0.04 H Absolute Nucleated RBC 0.00 Immature Gran % 0 Nucleated RBC % 0 PT INR APTT Puncture Site ABG pH ABG pCO2 ABG pO2 ABG HCO3 ABG O2 Saturation ABG Base Excess Oxygen Liter Flow FiO2 Sodium 141 Potassium 4.6 Chloride 105 Carbon Dioxide 29.2 Anion Gap 7 BUN 10 Creatinine 0.6 Estim Creat Clear Calc Not Performed. eGFR > 60 BUN/Creatinine Ratio 17 Glucose 110 H Calculated Osmolality 281 Lactic Acid Calcium 8.6 Corrected Calcium 8.8 Phosphorus 3.2 Magnesium 1.7 Total Bilirubin 0.6 AST 27 ALT 24 Alkaline Phosphatase 84 D Troponin I B-Natriuretic Peptide Total Protein 6.4 Albumin 3.7 D Globulin 2.7 Albumin/Globulin Ratio 1.4 TSH 1.07 Ur Collection Type Urine Color Urine Clarity Urine pH Ur Specific [place] Urine Protein Urine Glucose (UA) Urine Ketones Urine Blood Urine Nitrite Urine Bilirubin Urine Urobilinogen (Auto) Ur Leukocyte Esterase Urine RBC Urine WBC Ur Squamous Epith Cells Urine Bacteria Urine Opiates Screen Urine Fentanyl Screen Ur Barbiturates Screen U Amphetamin/Meth Scrn U Benzodiazepines Scrn U Cocaine Metab Screen U Marijuana (THC) Screen ABG Interpretation ABG results: 05/08/24 05/08/24 05/09/24 18:37 20:35 00:18 ABG pH 7.08 L* 7.21 L D 7.37 D ABG pCO2 105 H* 68 H D 53 H D ABG pO2 101 58 L* D 74 L ABG HCO3 31 H 27 H 31 H ABG O2 Saturation 95 85 L 95 ABG Base Excess -2 -2 4 H Quality Measures Quality Measures none Advance care planning discussed with:: patient Assessment & Plan Assessment Current Active Medications: Generic Name Dose Route Start Last Admin Trade Name Freq PRN Reason Stop Dose Admin Acetaminophen 650 mg 05/08/24 21:21 Acetaminophen 325 Mg Tablet PO 06/07/24 21:20 Q6H PRN Fever >101.5 OR MILD PAIN 1-3 Albuterol/Ipratropium 3 ml 05/08/24 23:00 05/09/24 11:25 Albuterol/Ipratropium (Duoneb) Rt Suzanne 3 Ml Nebu INH 06/07/24 22:59 3 ml Q4HRRT JG Administration Diphenhydramine HCl 12.5 mg 05/09/24 06:00 05/09/24 06:27 Diphenhydramine Inj 50 Mg/Ml Vial IV 06/08/24 05:59 12.5 mg Q2HR PRN Administration ITCHING Heparin Sodium (Porcine) 5,000 unit 05/08/24 22:00 05/09/24 05:30 Heparin Sod Inj 5000 Unit/Ml Vial SC 05/22/24 21:59 5,000 unit Q8HR JG Administration Sodium Chloride 1,000 mls @ 100 mls/hr 05/08/24 18:45 05/09/24 09:06 Ns IV 06/07/24 18:44 100 mls/hr .Q10H JG Administration Azithromycin 250 mg/ Sodium 250 mls @ 250 mls/hr 05/09/24 21:00 Chloride IV 05/15/24 21:40 QDAY@2100 JG Ceftriaxone Sodium 1,000 mg/ 50 mls @ 100 mls/hr 05/09/24 09:00 05/09/24 09:06 Sodium Chloride IV 05/16/24 08:59 100 mls/hr QDAY JG Administration Methylprednisolone Sodium Succinate 40 mg 05/09/24 09:00 05/09/24 09:07 Methylprednisolone Sod Succ 40 Mg Vial IVP 05/16/24 08:59 40 mg QDAY JG Administration Ondansetron HCl 4 mg 05/08/24 21:21 Ondansetron Inj 2 Mg/Ml Inj 2 Ml IV 06/07/24 21:20 Q6H PRN NAUSEA OR VOMITING Protocol Oxycodone/Acetaminophen 1 tab 05/08/24 21:21 Oxycodone/Apap 5/325 Tablet PO 05/13/24 21:20 Q6H PRN PAIN SCALE 4-6 (Moderate Pantoprazole Sodium 40 mg 05/09/24 09:00 05/09/24 09:06 Pantoprazole Inj 40 Mg Vial IVP 06/08/24 08:59 40 mg QDAY JG Administration Sennosides 1 tab 05/08/24 21:21 Senna Tablet PO 06/07/24 21:20 BID PRN CONSTIPATION Protocol Sodium Chloride 3 ml 05/08/24 18:40 Sodium Chloride Rt Suzanne 0.9% 3 Ml Nebu INH 06/07/24 18:39 PRN PRN SOLN Plan A 73-year-old male patient with past medical history of COPD on 1 L of oxygen, anxiety, depression, hypertension, brought to the ED from SNF after he was witnessed to be choking on food this evening and later Patient was admitted for management of acute on chronic hypercapnic hypoxic respiratory failure and acute encephalopathy #Acute on chronic hypercapnic hypoxic respiratory failure # Acute encephalopathy, likely due to hypoxia and hypercapnia - to rule out stroke likely secondary to COPD exacerbation due to aspiration -Patiently is living in SNF since August 2023 for rehabilitation and since then weaned off to oxygen 1 L -Patient had a sudden episode of choking while eating followed by sudden onset of shortness of breath for which patient was brought to the hospital -Initial ABG ABG was pH of 7.08, CO2 of 105, O2 saturation 101, HCO3 of 31. -After patient was suctioned and was put on high flow nasal cannula his ABG showed significant improvement with pH of 7.21, CO2 dropped from 105-68, pO2 of 58. -Chest x-ray showed mild heart failure however there was no consolidation or infiltrate -CT head did not show any hemorrhage, infarct. - CTA did not show any large vessel obstruction. 40 to 60% stenosis of the carotid bifurcation at the right internal carotid artery and 70 to 80% stenosis of the left carotid bifurcation of the left internal carotid artery. Plan -DuoNebs - BID and as needed -Solu-Medrol 40 mg IV -Ceftriaxone 1gm I.V qday and azithromycin to 50 mg p.o. daily -Chest physical therapy twice daily -Aspiration precautions -Teleneurologist was consulted he recommended just to continue his aspirin 81 mg daily as he does not have any suspicion of stroke or TIA. # History of depression/anxiety -Patient reported that he was initially on 2 antidepressant and was recently weaned off them #Hypertension -Patient was using carvedilol 3.125 Mg twice daily at home and lisinopril 20 Mg -Blood pressures are within normal limits since the hospital admission Plan -will continue to monitor blood pressures and add medications as needed -Resumed carvedilol #Hyperlipidemia # History of stroke -Resumed his aspirin and atorvastatin MRI canceled-no evidence of any stroke. CT brain negative. Hospital Maintenance: FEN: Regular diet DVT ppx: Subcutaneous heparin GI ppx: Protonix IV lines: PIV Tyson: Tyson Code status: Full code Dispo: Telemetry Patient plan of care was discussed with the attending physician, Dr. Darinel Lieberman, PGY1 Attending Provider Attestation/Addendum Patient seen and examined with resident physician Dr. Keith. Note reviewed, agree with findings and recommendations. Currently on high flow oxygen. Will start weaning down. Able to move all extremities. No evidence of any stroke. MRI brain canceled. Doubt he has stroke. Admits that he was eating and choked on food. Noted patient eats food while laying down. Had a long conversation to have meals while sitting at the edge of the bed or greater than 45 degree angle. He agreed. Currently in rehab. He has COPD.
--- NOTE | 2024-05-09 13:47 | PC.SS ---
Follow up note: Patient is altered. He is a long-term resident of [facility]. SS contacted patient's daughter, Jossy to get medical history of patient. Daughter states patient is a long-term resident at facility and is expected to return. Patient was admitted for aspirating at facility. Patient's daughter, Jossy, confirmed she will be the main point of contact and alt. medical decision maker along with her sister, Mel. Patient is on 02 at facility. Hx: COPD. Patient will need gurney transport upon discharge. Full code. PCP: Dr. Tena alt medical decision maker: Jossy, daughter, Mel, daughter, d/c plan: return to [facility]
[2024-05-09] MEDS: carVEDILOL 3.125 MG TABLET PO (20:33)
[2024-05-09] MEDS: ATORVASTATIN CALCIUM 20 MG TABLET PO (20:34)
[2024-05-10] VITALS: BP 121/65; PULSE 76; RESP 13; TEMP 36.2; O2SAT 97
[2024-05-10 04:00] VITALS: BP 134/72; PULSE 64; PULSE 68; RESP 16; TEMP 36.2; O2SAT 95
[2024-05-10] MEDS: HEPARIN SOD INJ 5000 UNIT/ML VIAL SC (05:40)
[2024-05-10 06:00] VITALS: BMI 27.9
[2024-05-10 06:03] LABS: Basophils % (Auto) 0 % (0-2.5); Eosinophils % (Auto) 0 % (0-10); Hematocrit 37.5 % (41.0-53.0); Hemoglobin 11.8 g/dL (13.5-16.0); Immature Granulocytes % (Auto) 0 % (0-0); Immature Granulocytes Auto 0.03 Thou/mm3 (0.00-0.00); Lymphocytes # (Auto) 1.2 Thou/mm3 (1.0-4.8); Lymphocytes % (Auto) 13 % (10-50); Mean Corpuscular HGB Conc 31.5 g/dl (31.0-37.0); Mean Corpuscular Hemoglobin 29.9 pg (25.0-35.0); Mean Corpuscular Volume 95 fL (80-100); Monocytes # (Auto) 0.8 Thou/mm3 (0.0-0.8); Monocytes % (Auto) 8 % (0-12); Neutrophils # (Auto) 7.2 Thou/mm3 (1.8-7.7); Neutrophils % (Auto) 78 % (37-80); Nucleated Red Blood Cell % 0 /100 WBC (0); Platelet Count 186 Thou/mm3 (140-440); RDW Standard Deviation 45.7 fL (35.1-43.9); Red Blood Count 3.95 Miln/mm3 (4.50-5.90); White Blood Count 9.3 Thou/mm3 (3.8-10.6)
[2024-05-10 06:40] LABS: Alanine Aminotransferase 18 U/L (10-49); Albumin, Serum 3.6 gm/dL (3.4-4.8); Albumin/Globulin Ratio 1.3 (1.2-2.2); Alkaline Phosphatase 68 U/L (46-116); Anion Gap 6 (7-16); Aspartate Amino Transferase 14 U/L (0-34); BUN/Creatinine Ratio 22 Ratio (12-20); Bilirubin,Total 0.5 mg/dL (0.3-1.2); Blood Urea Nitrogen 13 mg/dL (9-23); Calcium 8.7 mg/dL (8.3-10.6); Chloride 106 mMol/L (98-107); Creatinine (Component) 0.6 mg/dL (0.6-1.3); Estimated Creatinine Clearance 122.6 mL/min (>60); Globulin 2.7 gm/dL (2.3-3.5); Glucose 119 mg/dL (74-106); Osmolality,Calculated 284 (275-295); Phosphorous 2.4 mg/dL (2.4-5.1); Potassium 4.6 mMol/L (3.4-5.1); Sodium 142 mMol/L (136-145); Total Protein 6.3 gm/dL (5.7-8.2); eGFR > 60 See Note
[2024-05-10] MEDS: ALBUTEROL/IPRATROPIUM (Duoneb) RT SOL 3 ML NEBU INH (07:30)
[2024-05-10 07:33] VITALS: PULSE 65; RESP 23; O2SAT 97; O2SAT 99
[2024-05-10 08:00] VITALS: BP 149/86; PULSE 65; PULSE 89; RESP 18; TEMP 35.9; O2SAT 99
[2024-05-10 08:37] LABS: Glucose Estimated Average 114 mg/dL (80-131); Hemoglobin A1C 5.6 % Hgb (4.8-6.0)
--- NOTE | 2024-05-10 09:30 | PD.RESDS ---
Planned Discharge Date 05/10/24 DS: Providers Provider Date of admission: 05/08/24 21:21 Primary care physician: Chip Tena MD Admitting Provider: Luis Guerra MD Attending Provider on Admission: Ole Eastman MD Consults: 05/08/24 18:41 Consult to Neurology / Tele-Neurology Routine Comment: Consulting Provider: [facility] 05/08/24 23:33 Referral Speech Therapy Routine Comment: 05/09/24 16:19 Referral Physical Therapy Routine Comment: Physician Instructions: Attending Provider on DC: Sagar Lieberman MD Discharging Provider: Sagar Lieberman MD DS: Diagnosis Problem List Completed Was Problem List Reviewed/Reconciled?: Yes Hospital Course Hospital Course Hospital course: Mr. Ibrahim is a 73-year-old male patient with past medical history of COPD on 1 L of oxygen, anxiety, depression, hypertension, brought to the ED from SNF after he was witnessed to be choking on food and admitted for Acute hypoxic respiratory failure due to COPD exacerbation secondary to aspiration. CBC showed hemoglobin of 10.9, hemoglobin of 14.7, coagulation panel within normal limits. And his ABG was pH of 7.08, CO2 of 105, O2 saturation 101, HCO3 of 31. BMP showed normal serum creatinine, sodium, and potassium and normal BUN of 12, glucose was 194, and BNP was 410. Chest x-ray showed mild heart failure however there was no consolidation or infiltrate. Because the patient came with confusion stroke alert was initiated in which CT scan of the head and CT angio of head and neck were ordered in initially were positive for 40 to 60% stenosis of the carotid bifurcation at the right internal carotid artery and 70 to 80% stenosis of the left carotid bifurcation of the left internal carotid artery. Brain CT was negative for any hemorrhage or mass effect teleneurologist was consulted he recommended just to continue his aspirin 81 mg daily as he does not have any suspicion of stroke or TIA. Patient was treated with nebulizations, steroids and antibiotics during the hospitalization. Patient came back to his normal baseline Patient is discharged back to SNF with the following medications and recommendations -Follow-up with PCP within 1 week of discharge. -Continue home medications as previously prescribed -Return to ED if symptoms persist or return #Acute on chronic hypercapnic hypoxic respiratory failure # Acute encephalopathy, likely due to hypoxia and hypercapnia - to rule out stroke # History of depression/anxiety #Hypertension #Hyperlipidemia # History of stroke Patient plan of care was discussed with the attending physician, Dr. Darinel Lieberman, PGY1 Status at Discharge Cognitive/behavioral status at discharge: stable Functional status at discharge: uses cane/walker Overall status at discharge: patient is progressing back to baseline Time Spent with Patient Time attestation: Total time spent providing and/or coordinating discharge services:35 minutes Exam Vital Signs Temp Pulse Resp BP Pulse Ox O2 Del Method O2 Flow Rate 96.6 F L 65 18 149/86 H 99 Nasal Cannula 1 05/10/24 08:00 05/10/24 08:00 05/10/24 08:00 05/10/24 08:00 05/10/24 08:00 05/10/24 08:00 05/10/24 08:00 FiO2 30 05/10/24 04:00 Narrative Exam General: Awake. on 1 liter oxygen HEENT: Normocephalic, atraumatic, mucous membranes moist. Heart: Regular rate and rhythm, no murmurs. Lungs: Clear to auscultation with no wheezing or crackles. overall decreased breath sounds noted. Abdomen: Soft, nondistended, nontender, positive bowel sounds. ?No guarding or rebound tenderness. Neurologic: Alert and oriented x3, no gross neurological deficit, and patient able to move all 4 extremities. Extremities: No edema. Skin: No rash or ecchymoses. Discharge Plan Plan Patient Disposition: Xfer [facility] (SNF) Patient condition on transfer: Stable Care Plan Goals: -Follow-up with PCP within 1 week of discharge. -Continue home medications as previously prescribed -Return to ED if symptoms persist or return Prescriptions/Referrals Prescriptions/Med Rec: Continued atorvastatin 40 mg tablet 20 mg PO HS carvedilol 3.125 mg tablet 3.125 mg PO BID Rx Instructions: must administer with a meal/food cholecalciferol (vitamin D3) [Vitamin D3] 125 mcg (5,000 unit) Tablet 125 mcg PO QDAY Multivitamin 50 Plus Tablet 1 tab PO QDAY ipratropium-albuterol 0.5 mg-3 mg(2.5 mg base)/3 mL solution for nebulization 3 ml inhalation Q6H fluticasone furoate-vilanterol [Breo Ellipta] 100-25 mcg/dose blister with device 1 inh inhalation QDAY aripiprazole [Abilify] 2 mg Tablet 2 mg PO DAILY escitalopram oxalate [Lexapro] 20 mg Tablet 20 mg PO DAILY tadalafil 5 mg Tablet 5 mg PO QDAY cetirizine [Zyrtec] 10 mg Tablet 20 mg PO QDAY aspirin 81 mg Tablet,Chewable 81 mg PO QDAY lorazepam 0.5 mg Tablet 0.5 mg PO Q12HR PRN (Reason: Anxiety) Qty: 30 0RF lisinopril 20 mg Tablet 20 mg PO QDAY Qty: 30 0RF hydroxyzine HCl 25 mg Tablet 25 mg PO BID PRN (Reason: anxiety) Qty: 30 0RF Referrals: Chip Tena MD [Primary Care Provider] - Patient/Caregiver Discharge Instructions Discharge Activity: activity as tolerated Education Materials: What Is COPD? Print Language: Lao Activity Restrictions/Additional Instructions: make sure patient sits up while having meals asa 81mg po qd Stand Alone Forms: [employer] Info., Patient Portal Info Letter Discharge Order Discharge Orders: Discharge (Routine); Ordered 05/10/24 Ordered By: Chip Tena Quality Discharge Quality Measures VTE prophylaxis MD Attestestation MD Attestation Patient seen and examined with resident physician Dr. Keith. Note reviewed, agree with findings and recommendations. Patient admitted with an episode of choking while eating and improved markedly. No evidence of any stroke. Able to move all his extremities. Patient back to baseline. Will transfer him back to [facility] under Dr Gutierrez. Emphasized that he needs to eat while upright.
[2024-05-10] MEDS: cefTRIAXone 1,000 MG in SODIUM CHLORIDE 0.9% (Popper) 50 ML 100 MG IV (09:44)
[2024-05-10] MEDS: PANTOPRAZOLE INJ 40 MG VIAL IVP (09:46)
[2024-05-10 09:47] VITALS: BP 149/86; PULSE 65
[2024-05-10] MEDS: carVEDILOL 3.125 MG TABLET PO (09:47)
[2024-05-10] MEDS: ASPIRIN 81 MG CHEW PO (09:47)
--- NOTE | 2024-05-10 11:57 | PC.SS ---
SS attempted to setup transportation with [facility] but was unsuccessful. Per wine sales representative from [facility] patient's health insurance does not cover transportation. SS has setup gurney transportation with [facility]. SS has sent patient's facesheet, RISHI form, and ambulance form to [facility]. SS has setup transportation for 3pm to [facility]. Bedside nurse, Dianne is aware. Pt is aware. DtrMel is aware. Maribeth at [facility]. Pt is requiring 2 liters of O2. has sent updated inquiry to Talita at [facility] upon her request.
[2024-05-10 12:00] VITALS: BP 177/98; PULSE 90; PULSE 97; RESP 20; TEMP 35.9; O2SAT 99
[2024-05-10 14:11] VITALS: BMI 13.0
== END 2024-05-10 15:22 | disposition skilled nursing facility (03) | DRG 189 ==
LOC: SERX 21:29 → SERHOLD 21:33 → S2NX 23:38
PROVIDERS: Student in an Organized Health Care Education/Training Program; Admitting Provider Internal Medicine; Emergency Provider Emergency Medicine; PCP Internal Medicine; Visit Provider Student in an Organized Health Care Education/Training Program
DX: J96.22 Acute and chronic respiratory failure with hypercapnia (principal); G93.41 Metabolic encephalopathy; J44.1 Chronic obstructive pulmonary disease with (acute) exacerbation; E87.20 Acidosis, unspecified; J96.21 Acute and chronic respiratory failure with hypoxia; F32.9 Major depressive disorder, single episode, unspecified; F41.9 Anxiety disorder, unspecified; E78.5 Hyperlipidemia, unspecified; I11.0 Hypertensive heart disease with heart failure; I50.9 Heart failure, unspecified; I65.22 Occlusion and stenosis of left carotid artery; T17.928A Food in respiratory tract, part unspecified causing other injury, initial encounter; W44.F3XA Food entering into or through a natural orifice, initial encounter; Z86.73 Personal history of transient ischemic attack (TIA), and cerebral infarction without residual deficits; Z87.891 Personal history of nicotine dependence; Z79.82 Long term (current) use of aspirin; Z79.899 Other long term (current) drug therapy
CPT/HCPCS: 36415; 36600; 70360; 70450; 70496; 70498; 71045; 80048; 80053; 80307; 81001; 82803; 83036; 83605; 83735; 83880; 84100; 84443; 84484; 85025; 85610; 85730; 87040; 87081; 87086; 87400; 87811; 92526; 92610; 94640; 97162; A4649; A9270; J0456; J0696; J1200; J1643; J2405; J2470; J2919; J7030; J7050; Q9967